=== PATIENT | male | born 1945 | race Caucasian/White ===

== ENCOUNTER 2020-10-15 08:57 | Emergency (ER) | payer OTHER, MEDICARE, BC ==
[~2020-10-15] VITALS: Ht 180.3 cm; Wt 87.5 kg
[~2020-10-15 08:57] MED LIST: DICY10CA88 PO
[2020-10-15 09:52] VITALS: BP 131/80
== END 2020-10-15 09:53 | disposition home or self-care (01) ==
LOC: ER 09:00
DX: R04.0 Epistaxis (principal); R03.0 Elevated blood-pressure reading, without diagnosis of hypertension; Z98.890 Other specified postprocedural states; Z72.89 Other problems related to lifestyle; Z90.49 Acquired absence of other specified parts of digestive tract; Z79.899 Other long term (current) drug therapy
CPT/HCPCS: 99282

== ENCOUNTER 2021-03-16 18:57 | Emergency (ER) | payer OTHER, MEDICARE ==
[~2021-03-16] VITALS: Ht 180.3 cm; Wt 90.0 kg
[2021-03-16 20:17] VITALS: BP 154/103
[2021-03-16 20:40] LABS: CLARITY,URINE CLOUDY (Clear); COLOR,URINE YELLOW (Yellow); GLUCOSE, URINE NEGATIVE (Neg); KETONES,URINE TRACE mg/dl (Neg); LEUKOCYTE ESTERASE ,URINE MODERATE (Neg); NITRITES, URINE POSITIVE (Neg); OCCULT BLOOD,URINE TRACE-INTACT (Neg); PROTEIN,URINE TRACE mg/dl (Neg); UROBILINOGEN,URINE 0.2 E.U/dL (0.2-1.0)
[2021-03-16 20:46] LABS: UA COLLECTION TYPE CLN CATCH MIDSTREAM
[2021-03-16 20:48] LABS: BACTERIA,URINE 4+ /HPF (Neg); SQUAMOUS EPITHELIAL CELL,UR FEW /LPF (FEW); WBC,URINE 50-100 /HPF (0-4)
[2021-03-16 21:24] LABS: BASOPHILS % (AUTO) 0.3 % (0-1); EOSINOPHILS % (AUTO) 0 % (0-6); HEMATOCRIT 35.6 % (42.0-52.0); HEMOGLOBIN 11.6 g/dl (14.0-17.9); LYMPHOCYTES # (AUTO) 0.3 X10'3 (1.1-4.8); LYMPHOCYTES % (AUTO) 2.2 % (21-51); MEAN CORPUSCULAR HEMOGLOBIN 29.1 PG (27.0-31.0); MEAN CORPUSCULAR HGB CONC 32.6 g/dL (33.0-36.5); MEAN CORPUSCULAR VOLUME 89.2 FL (78-98); MEAN PLATELET VOLUME 8.5 FL (7.4-10.4); MONOCYTES # (AUTO) 0.6 X10'3 (0-0.9); MONOCYTES % (AUTO) 4.9 % (2-12); NEUTROPHILS # (AUTO) 10.7 X10'3 (1.8-7.7); NEUTROPHILS % (AUTO) 92.6 % (42-75); PLATELET COUNT 176 X10'3 (140-440); RED BLOOD COUNT 3.99 X10'6 (4.70-6.10); RED CELL DISTRIBUTION WIDTH 17.3 % (11.5-14.5); WHITE BLOOD COUNT 11.6 X10'3 (4.5-11.0)
[2021-03-16 21:39] LABS: ALANINE AMINOTRANSFERASE 14 U/L (12-78); ALBUMIN 3.6 G/DL (3.4-5.0); ALKALINE PHOSPHATASE 75 IU/L (46-116); ANION GAP 13 (8-16); ASPARTATE AMINO TRANSFERASE 14 U/L (10-37); BILIRUBIN,TOTAL 0.7 MG/DL (0.1-1.0); BLOOD UREA NITROGEN 22 MG/DL (7-18); CALCIUM 9.4 MG/DL (8.5-10.1); CHLORIDE 102 MMOL/L (99-107); GLUCOSE 208 MG/DL (70-104); LIPASE < 50 U/L (73-393); POTASSIUM 4.4 MMOL/L (3.5-5.1); SODIUM 139 MMOL/L (135-145); TOTAL CARBON DIOXIDE 24.4 MMOL/L (24-32); TOTAL PROTEIN 7.3 G/DL (6.4-8.2); eGFR 65 ML/MIN
--- NOTE | 2021-03-17 01:05 | NUR ---
pt left without being seen, was called by studio operations engineer in charge, states he will come back to the er in the am
[2021-03-17] MEDS ORDERED: ASCO-134 PO (12:59)
[2021-03-17] MEDS ORDERED: ALOG12.5 PO (12:59)
[2021-03-17] MEDS ORDERED: METF-900 PO (12:59)
[2021-03-17] MEDS ORDERED: AMLO5TAB4 PO (12:59)
[2021-03-17] MEDS ORDERED: LOSA50TA3 PO (12:59)
[2021-03-17] MEDS ORDERED: FLO0.4C PO (12:59)
[2021-03-17] MEDS ORDERED: CHOL100024 PO (12:59)
[2021-03-17] MEDS ORDERED: AMMO225L14 TP (12:59)
[2021-03-17] MEDS ORDERED: PITA2TAB2 PO (12:59)
[2021-03-17] MEDS ORDERED: OMEP20TA23 PO (12:59)
[2021-03-17] MEDS ORDERED: UREA227C4 TOP (12:59)
== END 2021-03-17 01:08 | disposition left against medical advice (07) ==
LOC: ER 18:57
DX: R10.9 Unspecified abdominal pain (principal); Z53.21 Procedure and treatment not carried out due to patient leaving prior to being seen by health care provider
CPT/HCPCS: 36415; 80053; 81001; 83690; 85025; 87077; 87088; 87186

== ENCOUNTER 2021-03-17 07:43 | Inpatient (IN) | payer OTHER, MEDICARE ==
[~2021-03-17] VITALS: Ht 180.3 cm; Wt 88.6 kg
[2021-03-17] MEDS ORDERED: levoFLOXACIN 250mg tablet PO ONE (10:15)
[2021-03-17] MEDS ORDERED: morphine 4 MG/ML inj SYRINge IV ONE (10:15)
[2021-03-17] MEDS ORDERED: ondansetron/PF 4mg/2ml inj IV ONE (10:15)
[2021-03-17] MEDS ORDERED: morphine 2 MG/ML inj. syringe IV PRN ×3 (11:30→22:35)
[2021-03-17] MEDS ORDERED: HYDROcodone/acetaminophen 10/325mg tab PO PRN (11:30)
[2021-03-17] MEDS ORDERED: magnesium hydroxide 30ml (MOM) UD suspension PO PRN (11:30)
[2021-03-17] MEDS ORDERED: ondansetron/PF 4mg/2ml inj IV PRN ×2 (11:30→22:35)
[2021-03-17] MEDS ORDERED: HYDROcodone/acetaminophen 5mg/325mg tablet PO PRN (11:30)
[2021-03-17] MEDS ORDERED: acetaminophen 325mg tablet PO PRN (11:30)
[2021-03-17] MEDS ORDERED: mag hydrox/Alum hydrox/simeth 30ml oral suspension PO PRN (11:30)
[2021-03-17] MEDS: docusate sod 100mg capsule PO SCH (11:38)
[2021-03-17] MEDS: dextrose 5%-1/2 normal saline 1,000 ML IV SCH ×2 (12:20→23:12)
[2021-03-17] MEDS ORDERED: UREA227C4 TOP (12:59)
[2021-03-17] MEDS ORDERED: LOSA50TA3 PO (12:59)
[2021-03-17] MEDS ORDERED: OMEP20TA23 PO (12:59)
[2021-03-17] MEDS ORDERED: ASCO-134 PO (12:59)
[2021-03-17] MEDS ORDERED: AMLO5TAB4 PO (12:59)
[2021-03-17] MEDS ORDERED: AMMO225L14 TP (12:59)
[2021-03-17] MEDS ORDERED: PITA2TAB2 PO (12:59)
[2021-03-17] MEDS ORDERED: CHOL100024 PO (12:59)
[2021-03-17] MEDS ORDERED: METF-900 PO (12:59)
[2021-03-17] MEDS ORDERED: ALOG12.5 PO (12:59)
[2021-03-17] MEDS ORDERED: FLO0.4C PO (12:59)
--- NOTE | 2021-03-17 16:17 | NUR ---
Patient in room ED 7. I have received report from ZEENAT ROBERSON FROM ER and had the opportunity to ask questions and assume patient care.
[2021-03-17 16:55] VITALS: BP 162/77
[2021-03-17 17:16] LABS: BASOPHILS % (AUTO) 0.3 % (0-1); EOSINOPHILS % (AUTO) 0 % (0-6); HEMATOCRIT 34.2 % (42.0-52.0); HEMOGLOBIN 11.3 g/dl (14.0-17.9); LYMPHOCYTES # (AUTO) 0.5 X10'3 (1.1-4.8); LYMPHOCYTES % (AUTO) 3.9 % (21-51); MEAN CORPUSCULAR HEMOGLOBIN 29.3 PG (27.0-31.0); MEAN CORPUSCULAR HGB CONC 33.1 g/dL (33.0-36.5); MEAN CORPUSCULAR VOLUME 88.6 FL (78-98); MEAN PLATELET VOLUME 8.5 FL (7.4-10.4); MONOCYTES % (AUTO) 8.1 % (2-12); NEUTROPHILS # (AUTO) 10.3 X10'3 (1.8-7.7); NEUTROPHILS % (AUTO) 87.7 % (42-75); PLATELET COUNT 164 X10'3 (140-440); RED BLOOD COUNT 3.86 X10'6 (4.70-6.10); RED CELL DISTRIBUTION WIDTH 17.6 % (11.5-14.5); WHITE BLOOD COUNT 11.8 X10'3 (4.5-11.0)
[2021-03-17 17:26] LABS: PARTIAL THROMBOPLASTIN TIME 34 SECONDS (22-32)
[2021-03-17 17:30] LABS: ALANINE AMINOTRANSFERASE 13 U/L (12-78); ALBUMIN 3.1 G/DL (3.4-5.0); ALBUMIN/GLOBULIN RATIO 0.8 (1.1-1.5); ALKALINE PHOSPHATASE 65 IU/L (46-116); ANION GAP 9 (8-16); ASPARTATE AMINO TRANSFERASE 13 U/L (10-37); BILIRUBIN,TOTAL 0.5 MG/DL (0.1-1.0); BLOOD UREA NITROGEN 23 MG/DL (7-18); BUN/CREATININE RATIO 13.5 (5.4-32.0); CHLORIDE 103 MMOL/L (99-107); CREATININE 1.71 MG/DL (0.60-1.10); GLUCOSE 206 MG/DL (70-104); POTASSIUM 4.3 MMOL/L (3.5-5.1); SODIUM 140 MMOL/L (135-145); TOTAL CARBON DIOXIDE 28.1 MMOL/L (24-32); eGFR 39 ML/MIN
--- NOTE | 2021-03-17 17:30 | NUR ---
PATIENT'S DAUGHTER ISAIAS TOOK ALL PERSONAL ITEMS HOME INCLUDING HIS WALLET
[2021-03-17 18:00] VITALS: BP 142/83
[2021-03-17] MEDS ORDERED: dextrose 50%-water 50ml dispensing syringe IV PRN ×2 (18:15)
[2021-03-17] MEDS ORDERED: MESSAGE TO PHARMACY PO ONE (18:15)
[2021-03-17] MEDS ORDERED: glucagon, human recombinant 1mg kit SUBCUT PRN (18:15)
[2021-03-17] MEDS ORDERED: dextrose ORAL solution 15 GM/59 ML bottle PO PRN ×2 (18:15)
--- NOTE | 2021-03-17 19:01 | NUR ---
PAGER ID: [phone] MESSAGE: PT RM [id number] Rosalio PENN patient surgery rescheduled for tomorrow EKG was done and was abnormal Dyana 543
[2021-03-17 19:09] LABS: HEMOGLOBIN A1C 6.5 % (4.5-6.2)
--- NOTE | 2021-03-17 19:21 | NUR ---
Problems reprioritized. Patient report given, questions answered & plan of care reviewed with ZEENAT LEDEZMA.
--- NOTE | 2021-03-17 19:25 | NUR ---
Patient in room [facility]. I have received report from ZEENAT Wong and had the opportunity to ask questions and assume patient care.
--- NOTE | 2021-03-17 19:28 | NUR ---
Spoke with Dr Gallegos on cell phone to make him aware of abnormal EKG for this patient. Patient is not complaining of any issues this was a routine EKG for his surgery tonight that has since been rescheduled for tomorrow morning. MD aware of abnormal EKG and will take a look at it.
[2021-03-17] MEDS: UREA CREAM TOP SCH (20:00)
[2021-03-17] MEDS: AMMONIUM LACTATE TOP SCH (20:00)
[2021-03-17] MEDS: amLODIPine 5mg tablet PO SCH (20:55)
[2021-03-17 22:30] VITALS: BP 133/77
--- NOTE | 2021-03-17 22:30 | NUR ---
Pt running a temp of 102.9, 02 sat at 92%, 133/77, HR 87 and blood glucose of 202. Gave Tylenol. Notified Dr. Vasquez she put in orders for Rocephin. Will continue to monitor.
[2021-03-17] MEDS ORDERED: proCHLORperazine 10 MG/2 ml inj IV PRN (22:35)
[2021-03-17] MEDS ORDERED: meperidine/PF 25mg/ml syringe IV PRN ×3 (22:35)
[2021-03-17] MEDS ORDERED: morphine 4 MG/ML inj SYRINge IV PRN (22:35)
[2021-03-17] MEDS ORDERED: ringers solution, lacted 1,000 ML IV SCH (22:35)
[2021-03-17] MEDS: acetaminophen 325mg tablet PO PRN (22:46)
[2021-03-17 23:00] VITALS: BP 133/60
[2021-03-17] MEDS: insulin glargine (Lantus) pen - multi-dose SQ SCH (23:13)
[2021-03-18] VITALS (23 sets, daily range): BP systolic 84–160; BP diastolic 49–75
[2021-03-18] MEDS: CefTRIAXone/D5W-Rocephin 1gm 50 ML IV SCH ×2 (01:11→23:12)
--- NOTE | 2021-03-18 06:30 | NUR ---
Patient in room [facility]. I have received report from Dyana EPPERSON and had the opportunity to ask questions and assume patient care.
--- NOTE | 2021-03-18 06:30 | NUR ---
Problems reprioritized. Patient report given, questions answered & plan of care reviewed with ZEENAT Rodríguez.
[2021-03-18 06:39] LABS: BASOPHILS % (AUTO) 0.1 % (0-1); EOSINOPHILS % (AUTO) 0 % (0-6); HEMOGLOBIN 10.8 g/dl (14.0-17.9); LYMPHOCYTES # (AUTO) 0.7 X10'3 (1.1-4.8); LYMPHOCYTES % (AUTO) 5.9 % (21-51); MEAN CORPUSCULAR HEMOGLOBIN 29.2 PG (27.0-31.0); MEAN CORPUSCULAR HGB CONC 32.9 g/dL (33.0-36.5); MEAN CORPUSCULAR VOLUME 88.9 FL (78-98); MONOCYTES % (AUTO) 8.9 % (2-12); NEUTROPHILS # (AUTO) 9.7 X10'3 (1.8-7.7); NEUTROPHILS % (AUTO) 85.1 % (42-75); PLATELET COUNT 145 X10'3 (140-440); RED BLOOD COUNT 3.71 X10'6 (4.70-6.10); RED CELL DISTRIBUTION WIDTH 17.3 % (11.5-14.5); WHITE BLOOD COUNT 11.4 X10'3 (4.5-11.0)
[2021-03-18] MEDS: acetaminophen 325mg tablet PO PRN (06:50)
--- NOTE | 2021-03-18 06:54 | NUR ---
Called report to recovery at this time and treated a 101.8 fever per recovery at this time.
[2021-03-18] MEDS ORDERED: iohexol 300 MG/1 ML 50ml polymer ONE (06:56)
--- NOTE | 2021-03-18 07:00 | NUR ---
Did not cover patient blood sugar patient was taken for surgery will continue to monitor and treat upon return.
[2021-03-18] MEDS ORDERED: insulin regular, human U-100 3ml vial - multi-dose ONE (07:04)
[2021-03-18 07:10] LABS: ALBUMIN 2.7 G/DL (3.4-5.0); ANION GAP 8 (8-16); BLOOD UREA NITROGEN 21 MG/DL (7-18); BUN/CREATININE RATIO 13.8 (5.4-32.0); CALCIUM 8.7 MG/DL (8.5-10.1); CHLORIDE 100 MMOL/L (99-107); CREATININE 1.52 MG/DL (0.60-1.10); GLUCOSE 180 MG/DL (70-104); SODIUM 135 MMOL/L (135-145); TOTAL CARBON DIOXIDE 26.7 MMOL/L (24-32); eGFR 45 ML/MIN
[2021-03-18] MEDS ORDERED: midazolam 1 mg/ML 2ml injection ONE (07:16)
[2021-03-18] MEDS ORDERED: fentaNYL/PF 50MCG/1 ML 2ML syringe ONE (07:16)
[2021-03-18] MEDS ORDERED: sugammadex 200mg/2ml injection IV ONE (07:42)
[2021-03-18] MEDS: normal saline 1000ml 1,000 ML IV SCH ×3 (07:45→19:55)
[2021-03-18] MEDS ORDERED: rocuronium 10mg/ml inj IV ONE (07:53)
[2021-03-18] MEDS ORDERED: propofol inj 20 ML IV ONE (07:53)
[2021-03-18] MEDS: losartan 50mg tablet PO SCH (08:00)
[2021-03-18] MEDS: AMMONIUM LACTATE TOP SCH ×2 (08:00→20:00)
[2021-03-18] MEDS ORDERED: CefTRIAXone/D5W-Rocephin 1gm 50 ML IV SCH (08:00)
[2021-03-18] MEDS ORDERED: atorvastatin 10mg tablet PO SCH (08:00)
[2021-03-18] MEDS: UREA CREAM TOP SCH ×2 (08:00→20:00)
--- NOTE | 2021-03-18 08:05 | NUR ---
Received from OR via BED, accompanied by Anesthesiologist TRIP and report given by Anesthesiolgist. BP LOW, GETTING A FLUID BOLUS AT THIS TIME. NO CO PAIN, UNABLE TO ENTER TEMPERATURE ON MT, 99.0F. IV RUNS WELL. NO RESP DISTRESS.
--- NOTE | 2021-03-18 08:32 | NUR ---
ON N/C NOW, BP RESPONDING TO BOLUS. NO RESP DISTRESS, NO CO PAIN.
--- NOTE | 2021-03-18 09:00 | NUR ---
Report called to receiving nurse. Transferred via BED Belongings . Special Issues communicated to receiving nurse.NO PAIN, VSS, IV PATENT. TRANSERRED WITHOUT INCIDENT.
[2021-03-18] MEDS: tamsulosin 0.4mg capsule PO SCH (09:24)
[2021-03-18] MEDS: docusate sod 100mg capsule PO SCH ×2 (09:24→20:14)
[2021-03-18] MEDS: ascorbic acid 500mg tablet PO SCH (09:24)
[2021-03-18] MEDS: pantoprazole 40mg Tablet.DR PO SCH (09:26)
[2021-03-18 11:57] LABS: HEMATOCRIT 31.6 % (42.0-52.0); HEMOGLOBIN 10.5 g/dl (14.0-17.9); MEAN CORPUSCULAR HEMOGLOBIN 29.5 PG (27.0-31.0); MEAN CORPUSCULAR HGB CONC 33.2 g/dL (33.0-36.5); MEAN CORPUSCULAR VOLUME 88.9 FL (78-98); MEAN PLATELET VOLUME 8.7 FL (7.4-10.4); PLATELET COUNT 149 X10'3 (140-440); RED BLOOD COUNT 3.56 X10'6 (4.70-6.10); RED CELL DISTRIBUTION WIDTH 17.2 % (11.5-14.5); WHITE BLOOD COUNT 10.5 X10'3 (4.5-11.0)
--- NOTE | 2021-03-18 12:57 | NUR ---
PAGER ID: [phone] MESSAGE: Marcos Surg [id number] Re: Gildardo Garcia Patient trops - but + blood cultures left arm 17.5 hour Gram+ cocci in pairs and clusters. Thanks
--- NOTE | 2021-03-18 18:46 | NUR ---
Problems reprioritized. Patient report given, questions answered & plan of care reviewed with Eva EPPERSON.
[2021-03-18] MEDS: insulin Lispro (HumaLOG) vial - multi-dose SQ SCH (19:53)
[2021-03-18] MEDS: lactobacillus rhamnosus 10,000 MMU CELLS/CAPSULE PO SCH (20:14)
[2021-03-18] MEDS: amLODIPine 5mg tablet PO SCH (20:16)
[2021-03-18] MEDS: insulin glargine (Lantus) pen - multi-dose SQ SCH (22:32)
[2021-03-19] VITALS: BP 141/54
[2021-03-19 06:21] LABS: BASOPHILS % (AUTO) 0 % (0-1); EOSINOPHILS % (AUTO) 0.1 % (0-6); HEMATOCRIT 30.5 % (42.0-52.0); HEMOGLOBIN 10.2 g/dl (14.0-17.9); LYMPHOCYTES # (AUTO) 0.8 X10'3 (1.1-4.8); LYMPHOCYTES % (AUTO) 8.4 % (21-51); MEAN CORPUSCULAR HEMOGLOBIN 29.7 PG (27.0-31.0); MEAN CORPUSCULAR HGB CONC 33.5 g/dL (33.0-36.5); MEAN CORPUSCULAR VOLUME 88.5 FL (78-98); MEAN PLATELET VOLUME 9.2 FL (7.4-10.4); MONOCYTES # (AUTO) 0.6 X10'3 (0-0.9); MONOCYTES % (AUTO) 6.5 % (2-12); NEUTROPHILS # (AUTO) 7.9 X10'3 (1.8-7.7); PLATELET COUNT 165 X10'3 (140-440); RED BLOOD COUNT 3.45 X10'6 (4.70-6.10); RED CELL DISTRIBUTION WIDTH 17.2 % (11.5-14.5); WHITE BLOOD COUNT 9.3 X10'3 (4.5-11.0)
[2021-03-19 06:39] LABS: ALBUMIN 2.4 G/DL (3.4-5.0); ANION GAP 6 (8-16); BLOOD UREA NITROGEN 32 MG/DL (7-18); BUN/CREATININE RATIO 23.2 (5.4-32.0); CALCIUM 8.6 MG/DL (8.5-10.1); CHLORIDE 104 MMOL/L (99-107); CREATININE 1.38 MG/DL (0.60-1.10); GLUCOSE 170 MG/DL (70-104); POTASSIUM 3.9 MMOL/L (3.5-5.1); SODIUM 136 MMOL/L (135-145); TOTAL CARBON DIOXIDE 25.7 MMOL/L (24-32); eGFR 50 ML/MIN
--- NOTE | 2021-03-19 06:39 | NUR ---
Handoff report given to Isabella RN Addendum: 03/19/21 at 0640 by Eva Currie RN Report given to Mallory EPPERSON
--- NOTE | 2021-03-19 06:40 | NUR ---
Patient in room [facility]. I have received report from ZEENAT Velasquez and had the opportunity to ask questions and assume patient care.
[2021-03-19 07:00] VITALS: BP 114/72
[2021-03-19] MEDS: lactobacillus rhamnosus 10,000 MMU CELLS/CAPSULE PO SCH (09:11)
[2021-03-19] MEDS: docusate sod 100mg capsule PO SCH (09:11)
[2021-03-19] MEDS: losartan 50mg tablet PO SCH (09:12)
[2021-03-19] MEDS: pantoprazole 40mg Tablet.DR PO SCH (09:12)
[2021-03-19] MEDS: tamsulosin 0.4mg capsule PO SCH (09:13)
[2021-03-19] MEDS: ascorbic acid 500mg tablet PO SCH (09:13)
[2021-03-19] MEDS: CefTRIAXone/D5W-Rocephin 1gm 50 ML IV SCH (09:13)
[2021-03-19] MEDS: insulin Lispro (HumaLOG) vial - multi-dose SQ SCH ×2 (09:21→14:18)
[2021-03-19] MEDS ORDERED: LEVO500T90 PO ×3 (10:56→11:02)
[2021-03-19 11:00] VITALS: BP 107/60
[2021-03-19] MEDS: normal saline 1000ml 1,000 ML IV SCH (13:45)
--- NOTE | 2021-03-19 15:55 | NUR ---
DC inst provided to pt. IV DC'd, tip intact. All belongings sent w/pt. WC to vehicle.
== END 2021-03-19 15:55 | disposition home or self-care (01) | DRG 661 ==
LOC: ER 07:43 → ED HOLD 11:34 → SUR 3N 16:40
PROVIDERS: ADMIT Internal Medicine; ATTEND Internal Medicine
PROC: BT1F1ZZ Fluoroscopy of Left Kidney, Ureter and Bladder using Low Osmolar Contrast (ICD-10-PCS; 2021-03-18)
PROC: 0T778DZ Dilation of Left Ureter with Intraluminal Device, Via Natural or Artificial Opening Endoscopic (ICD-10-PCS; principal; 2021-03-18 07:00)
DX: N13.6 Pyonephrosis (principal); D64.9 Anemia, unspecified; E11.22 Type 2 diabetes mellitus with diabetic chronic kidney disease; E78.5 Hyperlipidemia, unspecified; I12.9 Hypertensive chronic kidney disease with stage 1 through stage 4 chronic kidney disease, or unspecified chronic kidney disease; Z20.822 Contact with and (suspected) exposure to COVID-19; N17.0 Acute kidney failure with tubular necrosis; N18.9 Chronic kidney disease, unspecified; N40.0 Benign prostatic hyperplasia without lower urinary tract symptoms; Z87.442 Personal history of urinary calculi; Z90.49 Acquired absence of other specified parts of digestive tract; Z88.8 Allergy status to other drugs, medicaments and biological substances; Z79.899 Other long term (current) drug therapy; I95.9 Hypotension, unspecified
CPT/HCPCS: 36415; 74176; 74420; 76000; 80048; 80053; 82948; 83036; 83605; 84484; 85025; 85027; 85610; 85730; 87040; 87077; 87186; 87635; 93005; 96374; 96375; 99285; A4618; A7000; C1758; C1769; C2617; C9803; G0378; J0696; J1815; J2250; J2270; J2405; J2704; J3010; J3490; J7030; J7042; J7120; Q9967